=== PATIENT | male | born 1940 | race Hispanic/Latino ===

== ENCOUNTER 2017-10-31 13:59 | Observation (INO) | payer MEDICARE ==
[~2017-10-31] VITALS: Ht 152.4 cm; Wt 97.6 kg
[~2017-10-31 13:59] MED LIST: CARV6.25 PO; CILO100T PO; CLOP75TA32 PO; FENO145T37 PO; INSREG SQ; INSU100I24 SQ; LISI-617 PO; MECL-111 PO; TAMS0.4C32 PO; TORS20TA4 PO; VIT1TABL75 PO
[2017-10-31 14:50] LABS: BASOPHILS % (AUTO) 0.5 % (0.0-5.0); EOSINOPHILS % (AUTO) 2.1 % (0.0-8.0); HEMATOCRIT 39.7 % (42-54); MEAN CORPUSCULAR HGB CONC 35.2 g/dL (32.0-36.0); MEAN CORPUSCULAR VOLUME 96.6 fL (79-99); MONOCYTES % (AUTO) 10.1 % (3.0-13.0); NEUTROPHILS % (AUTO) 73.3 % (40.0-77.0); PLATELET COUNT (AUTO) 217 K/uL (130-400); RED BLOOD CELL COUNT(AUTO) 4.11 MIL/uL (4.50-6.20); RED CELL DISTRIBUTION WIDTH 13.1 % (11.0-15.5); WHITE BLOOD COUNT (AUTO) 6.8 K/uL (4.8-10.8)
[2017-10-31 15:09] LABS: CREATININE 2.5 mg/dL (0.5-1.5); INR 1.07 (0.85-1.15); PARTIAL THROMBOPLASTIN TIME 25.2 SEC (26.3-35.5); PROTHROMBIN TIME 11.2 SEC (9.6-11.6)
[2017-10-31 15:11] LABS: B-TYPE NATRIURETIC PEPTIDE 692 pg/mL (0-100)
[2017-10-31 15:21] LABS: ALBUMIN 3.3 g/dL (3.5-5.0); BILIRUBIN,TOTAL 0.7 mg/dL (0.2-1.0); CREATINE KINASE MB 1.5 ng/mL (0.5-3.6); TOTAL PROTEIN, SERUM 7.5 g/dL (6.0-8.3)
[2017-10-31] MEDS ORDERED: ASPIRIN 325 MG TABLET ONE (17:18)
[2017-10-31 22:48] LABS: APPEARANCE,URINE Clear (CLEAR); BILIRUBIN,URINE Negative (NEGATIVE); COLOR,URINE Yellow (YELLOW); GLUCOSE, URINE (UA) Negative (NEGATIVE); KETONES,URINE Negative (NEGATIVE); LEUKOCYTE ESTERASE ,URINE Negative (NEGATIVE); NITRATE,URINE Negative (NEGATIVE); OCCULT BLOOD,URINE Negative (NEGATIVE); PH,URINE 5.5 (5.0-8.0); PROTEIN,URINE Negative (NEGATIVE)
[2017-10-31 23:08] LABS: CREATINE KINASE MB 1.3 ng/mL (0.5-3.6)
[2017-11-01 06:58] LABS: BASOPHILS % (AUTO) 0.5 % (0.0-5.0); EOSINOPHILS % (AUTO) 1.9 % (0.0-8.0); HEMATOCRIT 41.6 % (42-54); LYMPHOCYTES % (AUTO) 17.1 % (21.0-51.0); MEAN CORPUSCULAR HEMOGLOBIN 33.8 pg (27.0-33.0); MEAN CORPUSCULAR HGB CONC 34.8 g/dL (32.0-36.0); MEAN CORPUSCULAR VOLUME 97.1 fL (79-99); MONOCYTES % (AUTO) 8.6 % (3.0-13.0); NEUTROPHILS % (AUTO) 71.9 % (40.0-77.0); PLATELET COUNT (AUTO) 226 K/uL (130-400); RED BLOOD CELL COUNT(AUTO) 4.28 MIL/uL (4.50-6.20); RED CELL DISTRIBUTION WIDTH 13.1 % (11.0-15.5); WHITE BLOOD COUNT (AUTO) 6.5 K/uL (4.8-10.8)
[2017-11-01 07:11] LABS: CREATININE 2.4 mg/dL (0.5-1.5); POTASSIUM 4.1 mmol/L (3.5-5.1)
[2017-11-01 08:08] VITALS: BP 125/54
[2017-11-01] MEDS ORDERED: FURO40TA5 PO (08:36)
[2017-11-01] MEDS ORDERED: TYL3 PO (08:36)
[2017-11-01] MEDS ORDERED: ISOS30TA11 PO (08:36)
[2017-11-01] MEDS ORDERED: FURO20TA4 PO (08:36)
[2017-11-01] MEDS ORDERED: POTASSIUM CHLORIDE 20MEQ/100ML 100 ML IV PRN (09:30)
[2017-11-01] MEDS ORDERED: CLONIDINE HCL 0.1 MG TABLET PO PRN (09:30)
[2017-11-01] MEDS ORDERED: LIDOCAINE HCL-MPF 1% 2ML VIAL IVP PRN (09:30)
[2017-11-01] MEDS ORDERED: POTASSIUM CHLORIDE 10% ELIXIR 20 MEQ/15 ML UDCUP PO PRN (09:30)
[2017-11-01] MEDS ORDERED: ONDANSETRON HCL MDV 20ML 2 MG/ML VIAL IVP PRN (09:30)
[2017-11-01] MEDS ORDERED: NITROGLYCERIN 0.4 MG SL TAB SL PRN (09:30)
[2017-11-01] MEDS ORDERED: ACETAMINOPHEN 325 MG TAB PO PRN ×2 (09:30)
[2017-11-01] MEDS ORDERED: POTASSIUM CHLORIDE 20 MEQ ERTAB PO PRN (09:30)
[2017-11-01] MEDS ORDERED: LACTULOSE 20 GM/30 ML UDCUP PO PRN (09:30)
[2017-11-01 10:00] LABS: CREATININE 2.5 mg/dL (0.5-1.5); POTASSIUM 4.4 mmol/L (3.5-5.1)
[2017-11-01 10:05] LABS: ALBUMIN 3.3 g/dL (3.5-5.0); BILIRUBIN,TOTAL 0.7 mg/dL (0.2-1.0); TOTAL PROTEIN, SERUM 7.3 g/dL (6.0-8.3)
[2017-11-01] MEDS ORDERED: METOCLOPRAMIDE 10 MG/2 ML VIAL IVP PRN (10:30)
[2017-11-01] MEDS ORDERED: MORPHINE SULFATE 2 MG/ML 1ML SYG ONE (11:03)
[2017-11-01] MEDS: MORPHINE SULFATE 2 MG/ML 1ML SYG IVP PRN ×3 (11:05→22:14)
[2017-11-01 12:40] VITALS: BP 136/76
[2017-11-01] MEDS ORDERED: ACETAMINOPHEN-CODEINE 300/30MG TAB PO PRN (15:15)
[2017-11-01 17:08] VITALS: BP 108/55
[2017-11-01] MEDS ORDERED: INSULIN HUMULIN R 100 UNIT/ML 3ML ONE (17:35)
[2017-11-01] MEDS ORDERED: MECLIZINE HCL 25 MG TABLET ONE (17:36)
[2017-11-01] MEDS: MECLIZINE HCL 25 MG TABLET PO SCH (18:00)
[2017-11-01] MEDS: CARVEDILOL 6.25 MG TABLET PO SCH (19:53)
[2017-11-01] MEDS: FAMOTIDINE 20MG TAB 20 MG TAB PO SCH (19:53)
[2017-11-01 20:00] VITALS: BP 109/54
[2017-11-01] MEDS ORDERED: FUROSEMIDE 20 MG TABLET PO SCH (21:00)
[2017-11-01] MEDS ORDERED: ISOSORBIDE DINITRATE 10 MG TABLET PO SCH (21:00)
[2017-11-01] MEDS ORDERED: INSULIN HUMULIN R 100 UNIT/ML 3ML SQ SCH ×2 (21:00)
[2017-11-01] MEDS ORDERED: INSULIN DEGLUDEC 75 UNIT SQ SCH (21:00)
[2017-11-01] MEDS: INSULIN HUMULIN R 100 UNIT/ML 3ML SQ SCH (21:16)
[2017-11-02] VITALS: BP 109/51
[2017-11-02 04:00] VITALS: BP 120/72
[2017-11-02] MEDS: MORPHINE SULFATE 2 MG/ML 1ML SYG IVP PRN (04:57)
[2017-11-02 05:49] LABS: CREATININE 2.2 mg/dL (0.5-1.5); POTASSIUM 4.1 mmol/L (3.5-5.1)
[2017-11-02] MEDS: INSULIN HUMULIN R 100 UNIT/ML 3ML SQ SCH ×2 (06:44→11:51)
[2017-11-02 07:48] VITALS: BP 119/49
[2017-11-02] MEDS ORDERED: LISINOPRIL 5 MG TABLET PO SCH (09:00)
[2017-11-02] MEDS ORDERED: BIOTIN PO SCH (09:00)
[2017-11-02] MEDS ORDERED: VIT B CMPLX PO SCH (09:00)
[2017-11-02] MEDS ORDERED: TAMSULOSIN HCL 0.4 MG CAP.ER.24H PO SCH (09:00)
[2017-11-02] MEDS ORDERED: FUROSEMIDE 40 MG TABLET PO SCH (09:00)
[2017-11-02] MEDS ORDERED: ASPIRIN 325 MG TABLET PO SCH (09:00)
[2017-11-02] MEDS ORDERED: CLOPIDOGREL BISULFATE 75 MG TAB PO SCH (09:00)
[2017-11-02] MEDS ORDERED: FENOFIBRATE NANOCRYSTALLIZED 145 MG TAB PO SCH (09:00)
[2017-11-02] MEDS ORDERED: [UNRECOGNIZED DRUG - OTHER] PO SCH (09:00)
[2017-11-02] MEDS: MECLIZINE HCL 25 MG TABLET PO SCH (09:46)
[2017-11-02] MEDS: CARVEDILOL 6.25 MG TABLET PO SCH (09:47)
[2017-11-02] MEDS: FAMOTIDINE 20MG TAB 20 MG TAB PO SCH (09:47)
[2017-11-02 11:19] VITALS: BP 135/68
[2017-11-02] MEDS ORDERED: SIMETHICONE 80 MG TAB.CHEW PO SCH (13:00)
== END 2017-11-02 12:10 | disposition home or self-care (01) ==
LOC: EDH 13:59 → EDHIP 18:15 → 4AH 11-01 15:40
PROVIDERS: ADMIT Family Medicine; ATTEND Family Medicine
DX: R10.13 Epigastric pain (principal); I25.10 Atherosclerotic heart disease of native coronary artery without angina pectoris; E11.22 Type 2 diabetes mellitus with diabetic chronic kidney disease; I12.9 Hypertensive chronic kidney disease with stage 1 through stage 4 chronic kidney disease, or unspecified chronic kidney disease; N18.9 Chronic kidney disease, unspecified; E78.5 Hyperlipidemia, unspecified; G47.30 Sleep apnea, unspecified; K59.00 Constipation, unspecified; Z87.891 Personal history of nicotine dependence; Z95.1 Presence of aortocoronary bypass graft
CPT/HCPCS: 36415 ×3; 71045; 74176; 76700; 80048 ×2; 80053 ×2; 81003; 82550 ×3; 82553 ×3; 82948 ×5; 83690; 83874 ×3; 83880; 84484 ×3; 85025 ×2; 85610; 85730; 93005 ×3; 96372; 96374; 96375; 96376 ×2; 99285; G0378 ×42; J1815 ×4

== ENCOUNTER 2018-01-15 17:34 | Inpatient (IN) | payer MEDICARE ==
[~2018-01-15 17:34] MED LIST changes: -CILO100T PO; +FURO20TA4 PO; +FURO40TA5 PO; +ISOS30TA11 PO; -TORS20TA4 PO; +TYL3 PO
[2018-01-15] MEDS ORDERED: ASPIRIN 325 MG TABLET ONE (17:47)
[2018-01-15 17:48] LABS: BASOPHILS % (AUTO) 0.6 % (0.0-5.0); EOSINOPHILS % (AUTO) 1.4 % (0.0-8.0); HEMATOCRIT 36.9 % (42-54); LYMPHOCYTES % (AUTO) 16.3 % (21.0-51.0); MEAN CORPUSCULAR HEMOGLOBIN 33.4 pg (27.0-33.0); MEAN CORPUSCULAR HGB CONC 34.9 g/dL (32.0-36.0); MEAN CORPUSCULAR VOLUME 95.6 fL (79-99); MONOCYTES % (AUTO) 10.3 % (3.0-13.0); NEUTROPHILS % (AUTO) 71.4 % (40.0-77.0); PLATELET COUNT (AUTO) 234 K/uL (130-400); RED BLOOD CELL COUNT(AUTO) 3.86 MIL/uL (4.50-6.20); RED CELL DISTRIBUTION WIDTH 13.6 % (11.0-15.5)
[2018-01-15 17:57] LABS: CREATININE 2.4 mg/dL (0.5-1.5); POTASSIUM 4.2 mmol/L (3.5-5.1)
[2018-01-15 17:58] LABS: INR 1.12 (0.85-1.15); PARTIAL THROMBOPLASTIN TIME 26.1 SEC (26.3-35.5); PROTHROMBIN TIME 11.7 SEC (9.6-11.6)
[2018-01-15 18:08] LABS: B-TYPE NATRIURETIC PEPTIDE 1670 pg/mL (0-100)
[2018-01-15 18:10] LABS: ALBUMIN 3.3 g/dL (3.5-5.0); BILIRUBIN,TOTAL 0.6 mg/dL (0.2-1.0); CREATINE KINASE MB 2.9 ng/mL (0.5-3.6); TOTAL PROTEIN, SERUM 7.5 g/dL (6.0-8.3)
[2018-01-15 18:39] LABS: APPEARANCE,URINE Clear (CLEAR); BILIRUBIN,URINE Negative (NEGATIVE); COLOR,URINE Dark Yellow (YELLOW); GLUCOSE, URINE (UA) 250 mg/dL (NEGATIVE); KETONES,URINE Negative (NEGATIVE); LEUKOCYTE ESTERASE ,URINE Negative (NEGATIVE); NITRATE,URINE Negative (NEGATIVE); OCCULT BLOOD,URINE Negative (NEGATIVE); PROTEIN,URINE Negative (NEGATIVE)
[2018-01-15 18:55] LABS: BACTERIA,URINE None Seen /HPF (None Seen); MUCUS,URINE Few LPF (None Seen); RBC,URINE None Seen /HPF (0-1); WBC,URINE None Seen /HPF (0-1)
[2018-01-15] MEDS ORDERED: FUROSEMIDE 10 MG/ML 4ML VIAL ONE (19:40)
[2018-01-15] MEDS ORDERED: NITROGLYCERIN 1GM/1 INCH PACKET TD ONE (19:40)
[2018-01-15] MEDS: FUROSEMIDE 10 MG/ML 4ML VIAL IVP SCH (21:00)
[2018-01-15] MEDS ORDERED: ACETAMINOPHEN 325 MG TAB PO PRN ×2 (21:30→22:45)
[2018-01-15] MEDS ORDERED: FOLI0.8T22 PO (22:41)
[2018-01-15] MEDS ORDERED: ATOR10 PO (22:41)
[2018-01-15] MEDS ORDERED: RANO500T2 PO (22:41)
[2018-01-15] MEDS ORDERED: VIT1CAPS46 PO (22:41)
[2018-01-15] MEDS ORDERED: BUSP7.5T7 PO (22:41)
[2018-01-15] MEDS ORDERED: HYDRALAZINE HCL 20 MG/ML VIAL IV PRN (22:45)
[2018-01-16] VITALS (7 sets, daily range): BP systolic 103–129; BP diastolic 56–74
[2018-01-16] MEDS ORDERED: ALPRAZOLAM 0.5 MG TABLET PO ONE (00:15)
[2018-01-16] MEDS ORDERED: ALPRAZOLAM 0.5 MG TABLET ONE (00:18)
[2018-01-16] MEDS: IPRATROPIUM/ALBUTEROL SULFATE 3 ML SOLUTION IH PRN ×2 (01:00→06:47)
[2018-01-16 05:42] LABS: HEMATOCRIT 36.5 % (42-54); MEAN CORPUSCULAR HEMOGLOBIN 34.6 pg (27.0-33.0); MEAN CORPUSCULAR HGB CONC 36.1 g/dL (32.0-36.0); MEAN CORPUSCULAR VOLUME 95.7 fL (79-99); PLATELET COUNT (AUTO) 218 K/uL (130-400); RED BLOOD CELL COUNT(AUTO) 3.81 MIL/uL (4.50-6.20); WHITE BLOOD COUNT (AUTO) 8.4 K/uL (4.8-10.8)
[2018-01-16 06:01] LABS: ALBUMIN 3.2 g/dL (3.5-5.0); BILIRUBIN,TOTAL 0.7 mg/dL (0.2-1.0); CREATININE 2.4 mg/dL (0.5-1.5); POTASSIUM 4.2 mmol/L (3.5-5.1); TOTAL PROTEIN, SERUM 7.2 g/dL (6.0-8.3)
[2018-01-16 06:21] LABS: B-TYPE NATRIURETIC PEPTIDE 1560 pg/mL (0-100)
[2018-01-16] MEDS: INSULIN HUMULIN R 100 UNIT/ML 3ML SQ SCH ×4 (06:32→20:59)
[2018-01-16] MEDS: INSULIN GLARGINE 100 UNITS/ML 10 ML VIAL SQ SCH ×2 (06:32→21:01)
[2018-01-16] MEDS: ENOXAPARIN SODIUM 30 MG/0.3 ML SQ SCH (08:50)
[2018-01-16] MEDS: ASPIRIN 325 MG TABLET PO SCH (08:50)
[2018-01-16] MEDS: FUROSEMIDE 10 MG/ML 4ML VIAL IVP SCH ×2 (08:50→20:57)
[2018-01-16] MEDS: PANTOPRAZOLE SODIUM 40 MG TABLET.DR PO SCH (08:51)
[2018-01-16] MEDS: ALPRAZOLAM 0.5 MG TABLET PO SCH (20:57)
[2018-01-17] MEDS ORDERED: ACETAMINOPHEN-CODEINE 300/30MG TAB PO PRN (01:00)
[2018-01-17 04:00] VITALS: BP 104/51
[2018-01-17 05:37] LABS: MEAN CORPUSCULAR HEMOGLOBIN 34.9 pg (27.0-33.0); MEAN CORPUSCULAR HGB CONC 36.5 g/dL (32.0-36.0); MEAN CORPUSCULAR VOLUME 95.6 fL (79-99); NUCLEATED RED BLOOD CELLS 0.1 % (0.0-0.19); PLATELET COUNT (AUTO) 232 K/uL (130-400); RED BLOOD CELL COUNT(AUTO) 3.97 MIL/uL (4.50-6.20); RED CELL DISTRIBUTION WIDTH 13.8 % (11.0-15.5)
[2018-01-17 05:42] LABS: CREATININE 2.2 mg/dL (0.5-1.5); POTASSIUM 3.6 mmol/L (3.5-5.1)
[2018-01-17] MEDS: INSULIN GLARGINE 100 UNITS/ML 10 ML VIAL SQ SCH ×2 (06:13→20:29)
[2018-01-17] MEDS: INSULIN HUMULIN R 100 UNIT/ML 3ML SQ SCH ×4 (06:13→20:29)
[2018-01-17 06:52] LABS: B-TYPE NATRIURETIC PEPTIDE 1350 pg/mL (0-100)
[2018-01-17 07:30] VITALS: BP 116/61
[2018-01-17 07:31] LABS: EOSINOPHILS % (MANUAL) 2 % (1-6); LYMPHOCYTES % (MANUAL) 12 % (22-44); MAN.DIFF COMMENT-IMPRESSION MANUAL DIFFERENTIAL; MONOCYTES % (MANUAL) 12 % (2-9); PLATELET MORPHOLOGY COMMENT ADEQUATE; SEGMENTED NEUTROPHILS % 74 % (40-70)
[2018-01-17] MEDS: PANTOPRAZOLE SODIUM 40 MG TABLET.DR PO SCH (10:12)
[2018-01-17] MEDS: ASPIRIN 325 MG TABLET PO SCH (10:12)
[2018-01-17] MEDS: ENOXAPARIN SODIUM 30 MG/0.3 ML SQ SCH (10:12)
[2018-01-17] MEDS: FUROSEMIDE 10 MG/ML 4ML VIAL IVP SCH (10:13)
[2018-01-17] MEDS: BISACODYL 5 MG TABLET.DR PO PRN ×2 (10:32→18:47)
[2018-01-17 11:00] VITALS: BP 124/52
[2018-01-17 16:00] VITALS: BP 100/46
[2018-01-17] MEDS ORDERED: ISOS20TA7 PO (18:16)
[2018-01-17] MEDS: FUROSEMIDE 10 MG/ML 2ML VIAL IV SCH (18:47)
[2018-01-17 19:00] VITALS: BP 140/70
[2018-01-17] MEDS: RANOLAZINE 500 MG TAB.SR.12H PO SCH (20:32)
[2018-01-17] MEDS: CARVEDILOL 3.125 MG TABLET PO SCH (20:33)
[2018-01-17] MEDS: ALPRAZOLAM 0.5 MG TABLET PO SCH (20:33)
[2018-01-17] MEDS: DOCUSATE SODIUM 100 MG CAP PO SCH (20:33)
[2018-01-17] MEDS ORDERED: ATORVASTATIN CALCIUM 20 MG TABLET PO SCH (21:00)
[2018-01-18] VITALS: BP 108/58
[2018-01-18 04:00] VITALS: BP 93/55
[2018-01-18 04:09] LABS: APPEARANCE,URINE Clear (CLEAR); BILIRUBIN,URINE Negative (NEGATIVE); COLOR,URINE Dark Yellow (YELLOW); GLUCOSE, URINE (UA) 250 mg/dL (NEGATIVE); KETONES,URINE Negative (NEGATIVE); LEUKOCYTE ESTERASE ,URINE Negative (NEGATIVE); NITRATE,URINE Negative (NEGATIVE); OCCULT BLOOD,URINE Negative (NEGATIVE); PROTEIN,URINE Negative (NEGATIVE)
[2018-01-18] MEDS: INSULIN HUMULIN R 100 UNIT/ML 3ML SQ SCH ×2 (06:11→11:43)
[2018-01-18 06:12] LABS: CREATININE 2.3 mg/dL (0.5-1.5); MAGNESIUM 1.9 mg/dL (1.80-2.40); POTASSIUM 3.5 mmol/L (3.5-5.1); URIC ACID 8.8 mg/dL (2.6-7.2)
[2018-01-18] MEDS: INSULIN GLARGINE 100 UNITS/ML 10 ML VIAL SQ SCH (06:25)
[2018-01-18] MEDS: FUROSEMIDE 10 MG/ML 2ML VIAL IV SCH (06:28)
[2018-01-18 06:31] VITALS: BP 115/60
[2018-01-18 08:00] VITALS: BP 129/67
[2018-01-18 08:13] LABS: HEMATOCRIT 39.2 % (42-54); MEAN CORPUSCULAR HEMOGLOBIN 33.9 pg (27.0-33.0); MEAN CORPUSCULAR HGB CONC 35.1 g/dL (32.0-36.0); MEAN CORPUSCULAR VOLUME 96.4 fL (79-99); PLATELET COUNT (AUTO) 214 K/uL (130-400); RED BLOOD CELL COUNT(AUTO) 4.07 MIL/uL (4.50-6.20); RED CELL DISTRIBUTION WIDTH 13.8 % (11.0-15.5); WHITE BLOOD COUNT (AUTO) 6.9 K/uL (4.8-10.8)
[2018-01-18] MEDS: ASPIRIN 325 MG TABLET PO SCH (08:50)
[2018-01-18] MEDS: PANTOPRAZOLE SODIUM 40 MG TABLET.DR PO SCH (08:51)
[2018-01-18] MEDS: DOCUSATE SODIUM 100 MG CAP PO SCH (08:51)
[2018-01-18] MEDS: CARVEDILOL 3.125 MG TABLET PO SCH (08:52)
[2018-01-18] MEDS: ENOXAPARIN SODIUM 30 MG/0.3 ML SQ SCH (08:52)
[2018-01-18] MEDS: RANOLAZINE 500 MG TAB.SR.12H PO SCH (08:52)
[2018-01-18] MEDS ORDERED: FENOFIBRATE NANOCRYSTALLIZED 145 MG TAB PO SCH (09:00)
[2018-01-18] MEDS ORDERED: CLOPIDOGREL BISULFATE 75 MG TAB PO SCH (09:00)
[2018-01-18 12:00] VITALS: BP 114/61
[2018-01-19] MEDS ORDERED: TORSEMIDE 20 MG TAB PO SCH (09:00)
== END 2018-01-18 16:12 | disposition home or self-care (01) | DRG 291 ==
LOC: EDH 17:34 → EDHIP 19:50 → 3DH 20:46
PROVIDERS: ADMIT Internal Medicine Nephrology; ATTEND Internal Medicine Nephrology
DX: I13.0 Hypertensive heart and chronic kidney disease with heart failure and stage 1 through stage 4 chronic kidney disease, or unspecified chronic kidney disease (principal); J96.90 Respiratory failure, unspecified, unspecified whether with hypoxia or hypercapnia; N17.9 Acute kidney failure, unspecified; N18.4 Chronic kidney disease, stage 4 (severe); I50.23 Acute on chronic systolic (congestive) heart failure; I45.2 Bifascicular block; E11.22 Type 2 diabetes mellitus with diabetic chronic kidney disease; D64.9 Anemia, unspecified; E11.51 Type 2 diabetes mellitus with diabetic peripheral angiopathy without gangrene; E66.9 Obesity, unspecified; E78.00 Pure hypercholesterolemia, unspecified; E78.5 Hyperlipidemia, unspecified; G47.33 Obstructive sleep apnea (adult) (pediatric); I25.119 Atherosclerotic heart disease of native coronary artery with unspecified angina pectoris; I25.5 Ischemic cardiomyopathy; I44.0 Atrioventricular block, first degree; F41.9 Anxiety disorder, unspecified; Z60.2 Problems related to living alone; K59.00 Constipation, unspecified; Z79.4 Long term (current) use of insulin; Z79.82 Long term (current) use of aspirin; Z95.1 Presence of aortocoronary bypass graft; Z71.3 Dietary counseling and surveillance; Z91.19 Patient's noncompliance with other medical treatment and regimen; Z91.14 Patient's other noncompliance with medication regimen; Z87.891 Personal history of nicotine dependence; Z83.3 Family history of diabetes mellitus; Z82.49 Family history of ischemic heart disease and other diseases of the circulatory system
CPT/HCPCS: 36415; 71045; 80048; 80053; 81001; 81003; 82553; 82948; 83735; 83880; 84100; 84484; 84550; 85025; 85027; 85610; 85730; 93005; 93306; 94640; 94664; C9113; J1650; J1815; J1940

== ENCOUNTER 2018-01-22 09:13 | Emergency (ER) | payer MEDICARE ==
[~2018-01-22 09:13] MED LIST changes: +ATOR10 PO; +BUSP7.5T7 PO; +FOLI0.8T22 PO; -FURO20TA4 PO; -FURO40TA5 PO; +ISOS20TA7 PO; +RANO500T2 PO; +VIT1CAPS46 PO
[2018-01-22 10:17] LABS: BASOPHILS % (AUTO) 0.3 % (0.0-5.0); HEMATOCRIT 37.8 % (42-54); LYMPHOCYTES % (AUTO) 15.3 % (21.0-51.0); MEAN CORPUSCULAR HEMOGLOBIN 33.8 pg (27.0-33.0); MEAN CORPUSCULAR HGB CONC 35.6 g/dL (32.0-36.0); MEAN CORPUSCULAR VOLUME 94.8 fL (79-99); MONOCYTES % (AUTO) 6.8 % (3.0-13.0); NEUTROPHILS % (AUTO) 76.6 % (40.0-77.0); PLATELET COUNT (AUTO) 172 K/uL (130-400); RED BLOOD CELL COUNT(AUTO) 3.99 MIL/uL (4.50-6.20); RED CELL DISTRIBUTION WIDTH 13.7 % (11.0-15.5); WHITE BLOOD COUNT (AUTO) 7.4 K/uL (4.8-10.8)
[2018-01-22 10:29] LABS: APPEARANCE,URINE Clear (CLEAR); BILIRUBIN,URINE Small (NEGATIVE); COLOR,URINE Dark Yellow (YELLOW); GLUCOSE, URINE (UA) Negative (NEGATIVE); KETONES,URINE Negative (NEGATIVE); LEUKOCYTE ESTERASE ,URINE Trace (NEGATIVE); NITRATE,URINE Negative (NEGATIVE); OCCULT BLOOD,URINE Negative (NEGATIVE); PROTEIN,URINE Negative (NEGATIVE)
[2018-01-22 10:37] LABS: POTASSIUM 4.2 mmol/L (3.5-5.1)
[2018-01-22 10:41] LABS: INR 1.1 (0.85-1.15); PARTIAL THROMBOPLASTIN TIME 27.2 SEC (26.3-35.5); PROTHROMBIN TIME 11.5 SEC (9.6-11.6)
[2018-01-22 10:45] LABS: ALBUMIN 3.5 g/dL (3.5-5.0); BILIRUBIN,DIRECT 0.4 mg/dL (0.0-0.3); BILIRUBIN,TOTAL 0.9 mg/dL (0.2-1.0); CREATININE 2.6 mg/dL (0.5-1.5); TOTAL PROTEIN, SERUM 7.8 g/dL (6.0-8.3)
[2018-01-22 11:14] LABS: B-TYPE NATRIURETIC PEPTIDE 1350 pg/mL (0-100)
[2018-01-22 11:15] LABS: BACTERIA,URINE Rare /HPF (None Seen); RBC,URINE 0-1 /HPF (0-1); SQUAMOUS EPITHELIAL CELL,UR Rare /HPF (0-2); WBC,URINE 0-1 /HPF (0-1)
== END 2018-01-22 13:55 | disposition home or self-care (01) ==
LOC: EDH 09:13
DX: R10.13 Epigastric pain (principal); I25.10 Atherosclerotic heart disease of native coronary artery without angina pectoris; I12.9 Hypertensive chronic kidney disease with stage 1 through stage 4 chronic kidney disease, or unspecified chronic kidney disease; E11.22 Type 2 diabetes mellitus with diabetic chronic kidney disease; N18.9 Chronic kidney disease, unspecified; E78.5 Hyperlipidemia, unspecified; Z98.890 Other specified postprocedural states
CPT/HCPCS: 36415; 71045; 74176; 80048; 80076; 81001; 82550; 82948; 83690; 83880; 84484; 85025; 85610; 85730; 93005